=== PATIENT | male | born 1965 ===

== ENCOUNTER 2020-09-29 10:28 | Outpatient (REF) | payer BC, SELFPAY | END 2020-09-29 10:29 | disposition home or self-care (01) | LOC: HO.LAB 10:28 | PROVIDERS: PCP Internal Medicine; Visit Provider Internal Medicine | DX: Z20.828 Contact with and (suspected) exposure to other viral communicable diseases (principal) | CPT/HCPCS: C9803; U0003 ==

== ENCOUNTER 2022-11-28 07:44 | Emergency (ER) | payer BC, SELFPAY ==
--- NOTE | ~2022-11-28 | US_ITS ---
EXAMINATION: US CHEST CLINICAL INFORMATION: Palpable area of midline upper back. Question presence of a lipoma of the right back. Patient reports history of tissue removal in same region 25 years ago. COMPARISON: None TECHNIQUE: Sonographic imaging was performed in the upper and mid back region using a high-resolution linear transducer and curved 5 MHz transducer. FINDINGS: Within the area of palpable concern of the upper back, there is 5.2 x 6.7 x 4 cm mass that is nearly isoechoic compared to adipose tissue and has thin parallel septa. The grayscale and color Doppler images show no abnormal vascularity within this tissue. No calcification or cystic change within the soft tissue mass. This has a sonographic appearance that favors diagnosis of lipoma. The technologist reports observation of a second soft tissue lesion located to the right of a scar in this region. This second area of concern measures approximately 6 x 3 x 4.9 cm and has mildly heterogeneous echotexture (images 16-22 of 23). There is no abnormal soft tissue vascularity or edema in this tissue. US/US chest IMPRESSION: 5.2 x 6.7 x 4 cm soft tissue mass of the back has a sonographic appearance of a lipoma. Since the lesion is > 5 cm in size, consider whether MR imaging should be performed without and with IV contrast to confirm this diagnosis and to further evaluate the surrounding tissues. The other 6 x 3 x 4.9 cm focus identified by the mineral technologist in this same region has mildly heterogeneous echotexture and might represent a lipomatous lesion but this is uncertain.
--- NOTE | ~2022-11-28 | XR_ITS ---
EXAMINATION: XR CHEST CLINICAL INFORMATION: Right-sided chest pain COMPARISON: None TECHNIQUE: 2 views of the chest were obtained. FINDINGS: Cardiac and mediastinal silhouettes are normal in appearance. The lungs and pleural spaces are clear. Mild degenerative change seen in the lower thoracic spine. XR/XR chest 2V IMPRESSION: The lungs and pleural spaces are clear. Normal heart size.
[2022-11-28 07:46] VITALS: BP 156/73; PULSE 82; RESP 20; TEMP 36.3; O2SAT 96; BMI 35.2
--- NOTE | 2022-11-28 07:48 | ECG_ITS ---
Test Reason : chest pain Blood Pressure : / mmHG Vent. Rate : 091 BPM Atrial Rate : 091 BPM P-R Int : 140 ms QRS Dur : 102 ms QT Int : 376 ms P-R-T Axes : 052 -04 024 degrees QTc Int : 462 ms Normal sinus rhythm Inferior infarct , age undetermined Abnormal ECG No previous ECGs available Referred By: Generic ED Physician Electronically Signed By:ANNE-MARIE COBOS MD
[2022-11-28 09:46] LABS: MANUAL DIFF FLAG NO
[2022-11-28 09:48] LABS: Basophils Absolute Auto 0.1 X10*3/uL (0.0-0.2); Basophils Percent Auto 1.2 % (0-2); Eosinophils Absolute Auto 0.2 X10*3/uL (0.0-0.4); Eosinophils Percent Auto 1.8 % (0-4); Hematocrit 39.8 % (42.0-52.0); Hemoglobin 13.7 g/dl (14.0-18.0); Imm Gran Abs Auto 0.03 X10*3/uL (0.00-0.03); Imm Gran Pct Auto 0.4 % (0.0-0.4); Lymphocytes Absolute Auto 2.2 X10*3/uL (1.2-4.9); Lymphocytes Percent Auto 26.1 % (20-40); Mean Corpuscular HGB Conc 34.4 g/dl (31.0-36.0); Mean Corpuscular Volume 87.1 fL (80.0-98.0); Mean Platelet Volume 9.1 fL (9.4-12.4); Monocytes Absolute Auto 0.8 X10*3/uL (0.1-1.2); Monocytes Percent Auto 9.6 % (2-11); Neutrophils Absolute Auto 5.2 x10*3/uL (2.0-8.3); Neutrophils Percent Auto 60.9 % (45-73); Platelet Count 363 X10*3/uL (160-400); Red Blood Count 4.57 X10*6/uL (4.60-5.80); Red Cell Distribution Width 13.4 % (11.0-16.0); White Blood Count 8.6 X10*3/uL (4.8-10.8)
[2022-11-28 10:07] LABS: Alanine Aminotransferase 30 U/L (0-40); Alkaline Phosphatase 106 U/L (39-117); Anion Gap 12 (12-20); Aspartate Amino Transferase 20 U/L (5-37); Bilirubin Total 0.6 mg/dL (0.0-1.0); Blood Urea Nitrogen 27 mg/dL (9-16); Calcium 9.5 mg/dL (8.4-10.2); Carbon Dioxide 32 mmol/L (22-29); Chloride 102 mmol/L (96-108); Creatinine Clr Calc Pharmacy 93.9; Estimated Glomerular Filt Rate > 60; Glucose Random 122 mg/dL (60-115); Magnesium 1.8 mg/dL (1.6-2.6); Potassium 3.6 mmol/L (3.3-5.1); Sodium 142 mmol/L (135-145); Total Protein 7.2 g/dL (6.5-8.0)
[2022-11-28 10:14] LABS: Troponin-I High Sensitivity < 3.5 ng/L (<3.5-35.0)
--- NOTE | 2022-11-28 10:16 | ED_ITS ---
HPI - Chest Pain General Chief Complaint: General Medical Stated Complaint: Chest pain Time Seen by Provider: 11/28/22 09:10 Source: patient Mode of arrival: ambulatory Limitations: no limitations History of Present Illness HPI narrative: 57-year-old male presenting to the ER with complaints of right-sided chest pain that radiates to his right shoulder that has been constant for the past few days. He reports it is currently present at this time. He reports that it is worse when he is laying down on his back he is unsure if it is related to his lipoma that he had surgically removed a few years ago that now group back. Denies any other symptoms related to this including dizziness, headaches, neck pain/stiffness, paresthesias, jaw pain, change in vision, dyspnea on exertion, orthopnea, palpitations, paresthesias, nausea/vomiting/diarrhea, abdominal pain, flank pain, lower extremity edema or calf tenderness, recent falls or trauma, rashes or any other symptoms complaints or concerns at this time. MD complaint: chest pain Onset (ago): day(s) (For the past few days) Timing of current episode: constant Prior episodes: No Onset: other (Cannot recall when it started) Pain location: right chest Pain radiation: right shoulder and right scapula Severity: mild Quality: aching Relieving factors: nothing Exacerbating factors: other (Laying down flat) Treatment prior to arrival: none Related Data Previous Rx's Medication Instructions Recorded cyclobenzaprine 10 mg tablet 10 mg PO Q8H #14 tabs 11/28/22 naproxen 500 mg tablet 500 mg PO BID PRN pain #14 tabs 11/28/22 Allergies Allergy/AdvReac Type Severity Reaction Status Date / Time No Known Allergies Allergy Verified 11/28/22 07:47 Review of Systems Review of Systems: Constitutional : No Weight loss, No Fever, No Chills, No Night Sweats, No Fatigue, No Malaise ENT/Mouth : No Hearing loss, No Ear Pain, No Nasal Congestion, No Sinus Pain, No Hoarseness, No sore throat, No Rhinorrhea, No Swallowing Difficulty Eyes: No Eye Pain, No Swelling, No Redness, No Foreign Body, No Discharge, No Vision Changes Cardiovascular : + Chest Pain, No SOB, No Dyspnea on Exertion, No Orthopnea, No Edema, No Palpitations Respiratory : No Cough, No Sputum, No Wheezing, No Smoke Exposure, No Dyspnea Gastrointestinal : No Nausea, No Vomiting, No Diarrhea, No Constipation, No abdominal Pain, No Hematochezia, No Melena Genitourinary : no irregular bleeding, No Dysuria, No Urinary Frequency, No Hematuria, No Urinary Incontinence, No Urgency, No Flank Pain, No Urinary Flow Changes, No Hesitancy Musculoskeletal : + right shoulder joint pain, No Myalgias, No Joint Swelling Skin : + lumop to right back, No Skin Lesions, No rash Neuro : No Weakness, No Numbness, No Paresthesias, No Loss of Consciousness, No Dizziness, No Headache Psych : No Anxiety/Panic, No Depression, No SI/HI/AH/VH, No Social Issues, Heme/Lymph: No Bruising, No Bleeding,No Lymphadenopathy Endocrine : No Polyuria, No Polydipsia, No Temperature Intolerance Yes all other systems are reviewed and are negative [facility] Past Medical History Attestation statement: The following information was validated with the patient. Source: old records reviewed and nursing notes reviewed Social History Social History Advance Directives: No Advance Directives Information Provided: Yes Physical Exam Vital Signs: Vital Signs: Last Vital Signs Temp 97.3 F 11/28/22 07:46 Pulse 82 11/28/22 07:46 Resp 20 11/28/22 07:46 BP 156/73 H 11/28/22 07:46 Pulse Ox 96 11/28/22 07:46 O2 Del Method 11/28/22 07:46 BMI result Body Mass Index 35.2 Vital signs reviewed. Blood pressure 156/73. Pulse normal. Respiration normal. Oxygen normal. Temperature normal. Appearance: Alert. Oriented X3. No acute distress. Head: Normal external exam. Normocephalic. Atraumatic. Eyes: PERRLA. EOMI. Conjunctiva and sclera normal. Eyelids normal. ENT: EAC normal. TM's Normal. Pharynx normal. Uvula midline. Moist mucous mem branes. No lesions/ulcerations or masses noted on the tongue. Normal voice. No trismus noted. No drooling noted. No muffled voice noted. Neck: Normal inspection. Neck supple. FROM. No adenopathy. Thyroid Normal. No meningeal signs. CVS: Normal heart rate and rhythm. Heart sound normal. Pulses normal throughout. No murmurs/rales/gallops. Respiratory: No respiratory distress. Painless inspiration. Breath sounds normal. No wheezes/rales/rhonchi noted. Chest nontender. No accessory muscle usa ge noted or decreased air movement noted. Abdomen: Soft and nontender. Back: Full range of motion noted. Patient lipoma to right side of back. No surrounding erythema/streaking or signs of infection at this time. No purulent drainage noted. Skin: Skin warm and dry. Normal skin color. Normal skin turgor. No rashes/lesions/lacerations noted. Extremities: Extremities exhibit normal range of motion and nontender. Neuro: Oriented X 3. No motor deficit. No sensory deficit. Reflexes normal. Normal steady gait. No focal neuro deficits noted. CN's II-XII intact bilaterally? Vascular: + radial pulses. Normal cap refill. No cyanosis noted to upper extremity nails Course Course Course Narrative: 57-year-old male presenting to the ER with complaints of right-sided chest pain that radiates to his right shoulder that has been constant for the past few days. He reports it is currently present at this time. He reports that it is worse when he is laying down on his back he is unsure if it is related to his lipoma that he had surgically removed a few years ago that now grew back. This patient presents with chest pain, with symptoms suggestive of noncardiac chest pain. History without high risk features (e.g., not substernal, no exertional component, not relieved with rest). Minimal CAD risk factors (including age).Exam without evidence of volume overload. EKG without signs of active ischemia. HEART score: 0. Given the timing of pain to ER presentation, plan to send single troponin // delta troponin to evaluate for NSTEMI.Presentation not consistent with acute PE (Wells low risk / PERC negative), pneumothorax, thoracic arotic dissection, cardiac effusion or tamponade. Therefore will obtain labs, chest x-ray, EKG and an ultrasound of his back and re-evaluate. Reevaluation(s) Reevaluation #1: Labs reviewed patient mild anemia with an H&H of 13.7/39.8. Carbon dioxide 32. BUN 27. Random glucose 122. Otherwise all other labs are within normal limits. Troponin negative. Chest x-ray negative for any acute processes. Chest ultrasound revealed possible lipoma which is greater than 5 cm. Will print out the results and handed to the patient. Patient with at bedside understand and agree with the plan to follow-up with the PCP. Patient most likely muscular skeletal pain. Will DC home with muscle relaxers and instructions to follow-up with PCP regarding the lipoma and a general surgeon and to return if any new or worsening symptoms. Patient understands agrees with this plan. Time: 11:13 Medical Decision Making Lab Data MDM Lab Attestation statement: I reviewed the patient's lab results. 11/28/22 09:36 11/28/22 09:36 Labs: Lab Results 11/28/22 11/28/22 11/28/22 Range/Units 09:36 09:36 09:36 WBC 8.6 (4.8-10.8) X10*3/uL RBC 4.57 L (4.60-5.80) X10*6/uL Hgb 13.7 L (14.0-18.0) g/dl Hct 39.8 L (42.0-52.0) % MCV 87.1 (80.0-98.0) fL MCH 30.0 (27.0-33.0) pg MCHC 34.4 (31.0-36.0) g/dl RDW 13.4 (11.0-16.0) % Plt Count 363 (160-400) X10*3/uL MPV 9.1 L (9.4-12.4) fL Immature Gran % (Auto) 0.4 (0.0-0.4) % Neut % (Auto) 60.9 (45-73) % Lymph % (Auto) 26.1 (20-40) % Banner % (Auto) 9.6 (2-11) % Eos % (Auto) 1.8 (0-4) % Baso % (Auto) 1.2 (0-2) % Lymph # (Auto) 2.2 (1.2-4.9) X10*3/uL Banner # (Auto) 0.8 (0.1-1.2) X10*3/uL Eos # (Auto) 0.2 (0.0-0.4) X10*3/uL Baso # (Auto) 0.1 (0.0-0.2) X10*3/uL Abs Immat Gran (auto) 0.03 (0.00-0.03) X10*3/uL Absolute Neuts (auto) 5.2 (2.0-8.3) x10*3/uL Absolute Nucleated RBC 0.000 (0.0-0.012) X10*3/uL Nucleated RBC % (auto) 0.0 (0.0-0.2) /100WBC Sodium 142 (135-145) mmol/L Potassium 3.6 (3.3-5.1) mmol/L Chloride 102 (96-108) mmol/L Carbon Dioxide 32 H (22-29) mmol/L Anion Gap 12 (12-20) BUN 27 H (9-16) mg/dL Creatinine 1.00 (0.5-1.4) mg/dL Estim Creat Clear Calc 93.9 Estimated GFR > 60 Random Glucose 122 H (60-115) mg/dL Calcium 9.5 (8.4-10.2) mg/dL Magnesium 1.8 (1.6-2.6) mg/dL Total Bilirubin 0.6 (0.0-1.0) mg/dL AST 20 (5-37) U/L ALT 30 (0-40) U/L Alkaline Phosphatase 106 (39-117) U/L Troponin I High Sens < 3.5 (<3.5-35.0) ng/L Total Protein 7.2 (6.5-8.0) g/dL Albumin 4.0 (3.5-5.0) g/dL Independent Interpretation I performed an independent interpretation of an: EKG (Normal sinus rhythm ventricular rate of [address] abnormalities no acute ischemic change are noted. No prior EKGs to compare to at this time.), Plain X-Ray (I reviewed the x-ray results with the patient and myself and agree) and Ultrasound (Reviewed the ultrasound results with patient and myself) Radiology Impression Discussion of test interpretation with radiology: I have reviewed the radiologist's reading. Radiologist Impression: EXAMINATION: XR CHEST CLINICAL INFORMATION: Right-sided chest pain COMPARISON: None TECHNIQUE: 2 views of the chest were obtained. FINDINGS: Cardiac and mediastinal silhouettes are normal in appearance. The lungs and pleural spaces are clear. Mild degenerative change seen in the lower thoracic spine. XR/XR chest 2V IMPRESSION: The lungs and pleural spaces are clear. Normal heart size. EXAMINATION: US CHEST CLINICAL INFORMATION: Palpable area of midline upper back. Question presence of a lipoma of the right back. Patient reports history of tissue removal in same region 25 years ago.? COMPARISON: None? TECHNIQUE: Sonographic imaging was performed in the upper and mid back region using a high-resolution linear transducer and curved 5 MHz transducer. FINDINGS: Within the area of palpable concern of the upper back, there is 5.2 x 6.7 x 4 cm mass that is nearly isoechoic compared to adipose tissue and has thin parallel septa. The grayscale and color Doppler images show no abnormal vascularity within this tissue. No calcification or cystic change within the soft tissue mass. This has a sonographic appearance that favors diagnosis of lipoma. The technologist reports observation of a second soft tissue lesion located to the right of a scar in this region. This second area of concern measures approximately 6 x 3 x 4.9 cm and has mildly heterogeneous echotexture (images 16-22 of 23). There is no abnormal soft tissue vascularity or edema in this tissue. US/US chest IMPRESSION: 5.2 x 6.7 x 4 cm soft tissue mass of the back has a sonographic appearance of a lipoma. Since the lesion is > 5 cm in size, consider whether MR imaging should be performed without and with IV contrast to confirm this diagnosis and to further evaluate the surrounding tissues. The other 6 x 3 x 4.9 cm focus identified by the medical technologist generalist in this same region has mildly heterogeneous echotexture and might represent a lipomatous lesion but this is uncertain. Independent Historian Clinical information obtained from an independent historian. History obtained from or confirmed by: Spouse Prescription Management I considered prescription management with: Pain Medication Discharge Plan Discharge Clinical Impression: Lipoma of back, Atypical chest pain Patient Disposition: Home, Self-Care Instructions: Noncardiac Chest Pain (ED), Lipoma (ED), Lipoma Removal (DC) Prescriptions: New naproxen 500 mg tablet 500 mg PO BID PRN (Reason: pain) Qty: 14 0RF cyclobenzaprine 10 mg tablet 10 mg PO Q8H Qty: 14 0RF Referrals: Dash Guajardo MD [Primary Care Provider] - (Follow-up with your PCP for your lipoma) Keith Fuentes MD [Physician] - (Call to make a follow-up appointment regard ing your lipoma)
== END 2022-11-28 11:27 | disposition home or self-care (01) ==
PROVIDERS: Physician Assistant Medical; Emergency Provider Emergency Medicine Emergency Medical Services; PCP Internal Medicine
DX: R07.89 Other chest pain (principal); M25.511 Pain in right shoulder; Z79.899 Other long term (current) drug therapy
CPT/HCPCS: 36415; 71046; 76604; 80053; 83735; 84484; 85025; 93005; 99283; 99284

== ENCOUNTER 2023-07-04 18:29 | Emergency (ER) | payer OTHER, BC, SELFPAY ==
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
[2023-07-04 19:18] VITALS: BP 118/62; PULSE 74; RESP 20; TEMP 36.6; O2SAT 95; BMI 33.3
[2023-07-04] MEDS: NaPROXEN 500 MG TABLET PO (21:50)
[2023-07-04] MEDS: Cyclobenzaprine HCl 10 MG TABLET PO (21:51)
== END 2023-07-04 21:55 | disposition home or self-care (01) ==
PROVIDERS: Emergency Provider Emergency Medicine Emergency Medical Services; PCP Internal Medicine
DX: S13.4XXA Sprain of ligaments of cervical spine, initial encounter (principal); S39.012A Strain of muscle, fascia and tendon of lower back, initial encounter; M54.2 Cervicalgia; R51.9 Headache, unspecified; M51.36 Other intervertebral disc degeneration, lumbar region; V43.52XA Car driver injured in collision with other type car in traffic accident, initial encounter; Y93.9 Activity, unspecified; Y92.410 Unspecified street and highway as the place of occurrence of the external cause; Y99.9 Unspecified external cause status; Z79.899 Other long term (current) drug therapy
CPT/HCPCS: 72040; 72100; 99283; 99284

== ENCOUNTER 2023-08-11 09:38 | Outpatient (AMB) | payer BC, SELFPAY ==
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
[2023-08-11 11:37] VITALS: BP 108/60; PULSE 79; TEMP 36.5; O2SAT 97; BMI 33.9
== END 2023-08-11 12:20 | disposition home or self-care (01) ==
PROVIDERS: PCP Internal Medicine; Visit Provider Physician Assistant
DX: R07.9 Chest pain, unspecified (principal); F41.9 Anxiety disorder, unspecified
CPT/HCPCS: 93000; 99204

== ENCOUNTER 2024-05-30 10:52 | Outpatient (AMB) | payer BC, SELFPAY ==
--- NOTE | 2024-05-30 10:54 | AM.OFFWIN_ITS ---
Intake Vital Signs 05/30/24 10:55 Height 5 ft 10 in Weight 228 lb 4 oz BMI 32.7 BP 142/90 H Blood Pressure Location Rt brachial Position Sitting Pulse 66 Pulse Source Pulse Oximeter Temp 97.8 F Temp Source Oral Pulse Oximetry (%) 97 Oxygen Delivery Method Room Air Intake Visit Reasons: EP- Lost his voice Intake Note: Pt presents to the office today for c/o sore throat, and some body aches x3 days. Patient Tobacco Use Status: Former Tobacco user Allergies No Known Allergies Allergy (Verified 05/30/24 10:57) HPI HPI Comments History of Present Illness Details Patient is a 59-year-old male complaining of 3 days of a hoarse voice a sore throat and body aches. He denies any sinus pain, ear pain, fevers or sick contacts. However he states he does work at [employer] and comes in contact with a lot of people every day. [facility] Social History Patient Tobacco Use Status: Former Tobacco user Review of Systems Const All systems reviewed & are unremarkable except as noted in HPI and below Physical Exam Vital Signs: Last Vital Signs Temp 97.8 F 05/30/24 10:55 Pulse 66 05/30/24 10:55 BP 142/90 H 05/30/24 10:55 Pulse Ox 97 05/30/24 10:55 Oxygen Delivery Method Room Air 05/30/24 10:55 BMI result Body Mass Index 32.7 Const General: cooperative, healthy appearing, comfortable and no acute distress Orientation/consciousness: patient oriented x3 Limitations: no limitations HEENT Head: Yes normal to inspection Ears: hearing grossly normal bilaterally, external ears normal and TM's normal bilaterally General nose exam: Normal external nose present, Normal nares present and No nasal discharge present Face and sinus: Yes normal facial exam and Yes sinuses nontender Mouth: Normal oral and palatal mucosa present and moist mucous membranes Throat: Yes tonsils normal, Yes uvula midline and Yes posterior oropharynx abnormal (Erythema) Eyes General: appearance normal, both eyes and all related structures Neck Neck: Yes normal visual inspection Resp Effort & Inspection: normal respiratory effort, able to speak in complete sentences, Actively coughing, no respiratory distress, not tachypneic, no tripod positioning and no use of accessory muscles Auscultation: clear to auscultation bilaterally Cardio Rate: regular rate Rhythm: regular rhythm Heart sounds: normal S1 and S2 Skin General skin exam: no rashes or lesions noted Neuro General: patient oriented x3 Extrem General: Yes normal to inspection and Yes no clubbing, cyanosis or edema Results AMB Rapid Strep AMB Rapid Strep Negative Last Edit by Chelo Ashley CMA on 05/30/24 11:03 Results Reviewed Results Reviewed: Laboratory Last Values Strep Scn Rapid Clinic Negative 05/30/24 11:02 Assessment & Plan Assessment & Plan (1) Laryngitis: Code(s): J04.0 - Acute laryngitis Plan: Advised laryngitis is usually viral, could be caused by COVID so we did send a COVID swab. Rapid strep in office was negative, recommended he treat his symptoms with [id number] medication, hot tea with honey and ibuprofen. If no improvement in his symptoms over the next couple of days, he should follow up with his PCP for further workup. Plan see above Orders: Orders SARS-CoV2/FLU/RSV Today J06.9 - Acute upper respiratory infection, unspecified AMB Rapid Strep Screen Today Z13.9 - Encounter for screening, unspecified Coding Level of Care Code New Pt Level 3 (57131) Diagnoses Laryngitis J04.0
[2024-05-30 10:55] VITALS: BP 142/90; PULSE 66; TEMP 36.6; O2SAT 97; BMI 32.7
== END 2024-05-30 11:16 | disposition home or self-care (01) ==
PROVIDERS: PCP Internal Medicine; Visit Provider Physician Assistant
DX: J04.0 Acute laryngitis (principal); J02.9 Acute pharyngitis, unspecified
CPT/HCPCS: 87880; 99203

== ENCOUNTER 2024-05-30 11:02 | Outpatient (REF) | payer BC, SELFPAY ==
[2024-05-30 16:10] LABS: Influenza A PCR NEGATIVE (Negative); Influenza B PCR NEGATIVE (Negative); Resp Syncy Virus RNA Qual PCR NEGATIVE (Negative); SARS COV2 PCR INHOUSE NEGATIVE (Negative)
== END 2024-05-30 11:03 | disposition home or self-care (01) ==
LOC: HO.LAB 11:02
PROVIDERS: Visit Provider Physician Assistant
DX: J06.9 Acute upper respiratory infection, unspecified (principal)
CPT/HCPCS: 0241U

== ENCOUNTER 2024-06-30 05:23 | Emergency (ER) | payer BC, SELFPAY ==
[2024-06-30] VITALS (7 sets, daily range): BP systolic 111–138; BP diastolic 56–81; PULSE 60–84; RESP 13–18; TEMP 36.4–36.7; O2SAT 97–98; BMI 35.3
--- NOTE | 2024-06-30 05:36 | ECG_ITS ---
Test Reason : DIZZINESS Blood Pressure : / mmHG Vent. Rate : 058 BPM Atrial Rate : 058 BPM P-R Int : 164 ms QRS Dur : 114 ms QT Int : 436 ms P-R-T Axes : 020 014 019 degrees QTc Int : 428 ms Sinus bradycardia Otherwise normal ECG When compared with ECG of 28-NOV-2022 07:50, Vent. rate has decreased BY 33 BPM Referred By: Suellen Gallardo Electronically Signed By:YENNY ALONZO
--- NOTE | 2024-06-30 05:48 | ED.DIZZY ---
HPI - Dizziness General Chief Complaint: Dizziness Stated Complaint: Dizzy Time Seen by Provider: 06/30/24 05:47 Source: patient Mode of arrival: ambulatory Limitations: no limitations History of Present Illness ED Provider: JUDSON FRAZIER Narrative: 59 yo male with PMH of HTN, pre-diabetes who presents with c/o dizziness on and off fine during the day but when he woke up both mornings he felt dizzy and lightheaded. No CP/SOB, no recent URI, no headaches/tinnitus, head trauma. He states he has been feeling great. He has no med changes. This has never happened before. No recent travel, no GIB symptoms. MD elicited complaint: dizziness Onset (ago): day(s) (2) Timing: sudden onset and intermittent Severity: moderate Description: room spinning and lightheadedness Context: change in body position History of similar symptoms: Yes Exacerbating factors: change in body position Relieving factors: remaining still Associated symptoms: denies other symptoms Related Data Home Medications ?Medication ?Instructions ?Recorded ?Confirmed amlodipine 5 mg tablet 5 mg PO DAILY 08/11/23 celecoxib 200 mg capsule mg PO BID 08/11/23 eplerenone 25 mg tablet 25 mg PO DAILY 08/11/23 lisinopril 40 mg tablet 40 mg PO DAILY 08/11/23 tamsulosin 0.4 mg capsule 0.4 mg PO DAILY 08/11/23 Previous Rx's ?Medication ?Instructions ?Recorded cyclobenzaprine 10 mg tablet 10 mg PO Q8H #14 tabs 11/28/22 naproxen 500 mg tablet 500 mg PO BID PRN pain #14 tabs 11/28/22 cyclobenzaprine 10 mg tablet 10 mg PO TID PRN muscle spasm #20 07/04/23 tabs naproxen 500 mg tablet 500 mg PO BID PRN pain #14 tabs 07/04/23 hydroxyzine HCl 25 mg tablet 25 mg PO TID PRN anxiety #10 tabs 08/11/23 Allergies Allergy/AdvReac Type Severity Reaction Status Date / Time No Known Allergies Allergy Verified 06/30/24 05:40 Review of Systems Review of Systems: Constitutional : No Fever, No Chills, No Fatigue ENT/Mouth : No sore throat, No Rhinorrhea Eyes: No Eye Pain, No Swelling, No Redness Cardiovascular : No Chest Pain, No SOB, No Dyspnea on Exertion Respiratory : No Cough, No Sputum Gastrointestinal : No Nausea, No Vomiting, No Diarrhea, No abdominal Pain Genitourinary : No Dysuria, No Urinary Frequency, No Hematuria, Musculoskeletal : No joint pain, No Myalgias, No Joint Swelling Skin : No Skin Lesions, No rash Neuro : No Weakness, No Numbness, pos Dizziness, no Headache Psych : No Anxiety/Panic, No Depression Heme/Lymph: No Bruising, No Bleeding,No Lymphadenopathy Endocrine : No Polyuria, No Polydipsia All other systems reviewed and are negative [facility] Past Medical History Attestation statement: The following information was validated with the patient. Source: old records reviewed Medical History HTN (hypertension) Anxiety Social History Social History Patient Tobacco Use Status: Former Tobacco user Smoked in Last 30 Days: No Use of substances other than those prescribed or required for medical reasons: No Advance Directives: No Advance Directives Information Provided: Yes Physical Exam Vital Signs: Vital Signs: Last Vital Signs Temp 97.6 F 06/30/24 05:43 Pulse 78 06/30/24 05:57 Resp 18 06/30/24 05:43 BP 129/70 06/30/24 05:57 Pulse Ox 97 06/30/24 05:43 O2 Del Method Room Air 06/30/24 05:43 BMI result Body Mass Index 35.3 Appearance: Alert. Oriented X3. No acute distress. Eyes: Pupils equal, round and reactive to light. ENT: Pharynx normal. Normal TMs Neck: Normal inspection. Neck supple. CVS: Normal heart rate and rhythm. Pulses normal. Respiratory: No respiratory distress. Breath sounds normal. Abdomen: Soft and nontender. Skin: Skin warm and dry. Normal skin color. Normal skin turgor. Extremities: No lower extremity edema. No calf ttp Neuro: Oriented X 3. No motor deficit. No sensory deficit. normal gait, no ataxia, no drift NIH Stroke Scale Internal: Initial- Upon Arrival Level of Consciousness: Alert Level of Consciousness Questions: Answers both questions correctly Level of Consciousness Commands: Performs both tasks correctly Best Gaze: Normal Visual: No visual loss Facial Palsy: Normal Motor Arm (Right): No drift Motor Arm (Left): No drift Motor Leg (Right): No drift Motor Leg (Left): No drift Limb Ataxia: Absent Sensory: Normal Best Language: No aphasia Dysarthia: Normal Extinction and Inattention: No abnormality Score: 0 Course Course Course Narrative: negative orthostatic VS Medications Administered Discontinued Medications Generic Name Dose Route Start Last Admin Trade Name Arabella PRN Reason Stop Dose Admin Lactated Ringer's 1,000 mls @ 999 mls/hr 06/30/24 05:36 06/30/24 06:15 Lr IV 06/30/24 06:36 999 mls/hr .Q1H1M ONE Administration Medical Decision Making Medical Decision Making [facility] Narrative: 59 yo male with PMH of HTN, pre-diabetes here with c/o positional dizziness worse x 2 days in AM - at this time not toxic, normal gait, denies CP/SOB - no GI bleed symptoms. He is not toxic appearing will obtain basic labs, EKG, ortho VS, hydrate. Given 2 days and in AM with standing without other symptoms or focal deficits I do not suspect stroke. He has no chest pain to suggest ACS. Differential Diagnosis Differential Diagnoses: The differential diagnosis associated with the presentation includes vertigo, orthostatic hypotension, dehydration, anemia Admission/Observation Consideration of admission/observation: Escalation of care including admission/observation considered labs stable, VS stable, neg ortho vs feels better stable for DC Lab Data [facility] Lab Attestation statement: I reviewed the patient's lab results. 06/30/24 06:08 06/30/24 06:08 Labs: Lab Results 06/30/24 Range/Units 06:08 WBC 6.9 (4.8-10.8) X10*3/uL RBC 4.47 L (4.60-5.80) X10*6/uL Hgb 13.4 L (14.0-18.0) g/dl Hct 39.0 L (42.0-52.0) % MCV 87.2 (80.0-98.0) fL MCH 30.0 (27.0-33.0) pg MCHC 34.4 (31.0-36.0) g/dl RDW 13.3 (11.0-16.0) % Plt Count 311 (160-400) X10*3/uL MPV 9.0 L (9.4-12.4) fL Immature Gran % (Auto) 0.3 (0.0-0.4) % Neut % (Auto) 57.3 (45-73) % Lymph % (Auto) 28.8 (20-40) % Hand % (Auto) 9.2 (2-11) % Eos % (Auto) 3.2 (0-4) % Baso % (Auto) 1.2 (0-2) % Lymph # (Auto) 2.0 (1.2-4.9) X10*3/uL Hand # (Auto) 0.6 (0.1-1.2) X10*3/uL Eos # (Auto) 0.2 (0.0-0.4) X10*3/uL Baso # (Auto) 0.1 (0.0-0.2) X10*3/uL Abs Immat Gran (auto) 0.02 (0.00-0.03) X10*3/uL Absolute Neuts (auto) 3.9 (2.0-8.3) x10*3/uL Absolute Nucleated RBC 0.000 (0.0-0.012) X10*3/uL Nucleated RBC % (auto) 0.0 (0.0-0.2) /100WBC Hold Purple Top SEE NOTE Hold Blue Top SEE NOTE Sodium 141 (135-145) mmol/L Potassium 3.8 (3.3-5.1) mmol/L Chloride 107 (96-108) mmol/L Carbon Dioxide 25 (22-29) mmol/L Anion Gap 13 (12-20) BUN 27 H (9-16) mg/dL Creatinine 0.89 (0.5-1.4) mg/dL Estim Creat Clear Calc 103.1 Estimated GFR > 60 Random Glucose 158 H (60-115) mg/dL Calcium 9.3 (8.4-10.2) mg/dL Magnesium 2.0 (1.6-2.6) mg/dL Total Bilirubin 0.6 (0.0-1.0) mg/dL Direct Bilirubin 0.2 (0.0-0.5) mg/dL AST 16 (5-37) U/L ALT 25 (0-40) U/L Alkaline Phosphatase 95 (39-117) U/L Troponin I High Sens < 2.7 (<3.5-35.0) ng/L Total Protein 7.1 (6.5-8.0) g/dL Albumin 3.9 (3.5-5.0) g/dL Independent Interpretation I performed an independent interpretation of an: EKG Interpretation: Rate: 58 Rhythm: sinus bradycardia [place]: normal Normal P waves. Normal [place]. Normal QRS complex. ST T wave : normal no LIBAN qTC: 428 prior studies: no acute ischemia The study has been interpreted contemporaneously by me. . Independent Historian Clinical information obtained from an independent historian. History obtained from or confirmed by: Spouse External Record Review External record reviewed: Office record Discharge Plan Discharge Clinical Impression: Dizziness Patient Disposition: Home, Self-Care Instructions: Dizziness (ED) Additional Instructions: follow up with your doctor rest and stay hydrated wait on the edge of the bed for 1 min prior to getting up return for any worsening symptoms or concerns Prescriptions: No Action naproxen 500 mg tablet 500 mg PO BID PRN (Reason: pain) Qty: 14 0RF cyclobenzaprine 10 mg tablet 10 mg PO Q8H Qty: 14 0RF cyclobenzaprine 10 mg tablet 10 mg PO TID PRN (Reason: muscle spasm) Qty: 20 0RF naproxen 500 mg tablet 500 mg PO BID PRN (Reason: pain) Qty: 14 0RF lisinopril 40 mg tablet 40 mg PO DAILY tamsulosin 0.4 mg capsule 0.4 mg PO DAILY amlodipine 5 mg tablet 5 mg PO DAILY celecoxib 200 mg capsule PO BID eplerenone 25 mg tablet 25 mg PO DAILY hydroxyzine HCl 25 mg tablet 25 mg PO TID PRN (Reason: anxiety) Qty: 10 0RF Stand Alone Forms: Work/School Release Print Language: Japanese
[2024-06-30] MEDS: Lactated Ringers 1,000 ML 999 ML IV (06:15)
[2024-06-30 06:16] LABS: Basophils Absolute Auto 0.1 X10*3/uL (0.0-0.2); Basophils Percent Auto 1.2 % (0-2); Eosinophils Absolute Auto 0.2 X10*3/uL (0.0-0.4); Eosinophils Percent Auto 3.2 % (0-4); Hemoglobin 13.4 g/dl (14.0-18.0); Imm Gran Abs Auto 0.02 X10*3/uL (0.00-0.03); Imm Gran Pct Auto 0.3 % (0.0-0.4); Lymphocytes Percent Auto 28.8 % (20-40); MANUAL DIFF FLAG NO; Mean Corpuscular HGB Conc 34.4 g/dl (31.0-36.0); Mean Corpuscular Volume 87.2 fL (80.0-98.0); Monocytes Absolute Auto 0.6 X10*3/uL (0.1-1.2); Monocytes Percent Auto 9.2 % (2-11); Neutrophils Absolute Auto 3.9 x10*3/uL (2.0-8.3); Neutrophils Percent Auto 57.3 % (45-73); Platelet Count 311 X10*3/uL (160-400); Red Blood Count 4.47 X10*6/uL (4.60-5.80); Red Cell Distribution Width 13.3 % (11.0-16.0); White Blood Count 6.9 X10*3/uL (4.8-10.8)
[2024-06-30 06:29] LABS: Alanine Aminotransferase 25 U/L (0-40); Albumin Level 3.9 g/dL (3.5-5.0); Alkaline Phosphatase 95 U/L (39-117); Anion Gap 13 (12-20); Aspartate Amino Transferase 16 U/L (5-37); Bilirubin Direct 0.2 mg/dL (0.0-0.5); Bilirubin Total 0.6 mg/dL (0.0-1.0); Blood Urea Nitrogen 27 mg/dL (9-16); Calcium 9.3 mg/dL (8.4-10.2); Carbon Dioxide 25 mmol/L (22-29); Chloride 107 mmol/L (96-108); Creatinine Clr Calc Pharmacy 103.1; Estimated Glomerular Filt Rate > 60; Glucose Random 158 mg/dL (60-115); Potassium 3.8 mmol/L (3.3-5.1); Sodium 141 mmol/L (135-145); Total Protein 7.1 g/dL (6.5-8.0)
[2024-06-30 06:52] LABS: Troponin-I High Sensitivity < 2.7 ng/L (<3.5-35.0)
== END 2024-06-30 07:35 | disposition home or self-care (01) ==
PROVIDERS: Emergency Provider Emergency Medicine; PCP Internal Medicine
DX: R42 Dizziness and giddiness (principal); I10 Essential (primary) hypertension; Z79.899 Other long term (current) drug therapy
CPT/HCPCS: 36415; 80048; 80076; 83735; 84484; 85025; 93005; 99283; 99285; J7120

== ENCOUNTER → 2024-10-06 18:51 | Outpatient (BNV) | payer BC, SELFPAY | PROVIDERS: Emergency Provider Emergency Medicine; Visit Provider Internal Medicine | DX: R07.9 Chest pain, unspecified (principal) | CPT/HCPCS: 93010 ==

== ENCOUNTER → 2024-10-06 19:09 | Outpatient (BNV) | payer BC, SELFPAY | PROVIDERS: Visit Provider Radiology Diagnostic Radiology | DX: R07.9 Chest pain, unspecified (principal) | CPT/HCPCS: 71045 ==

== ENCOUNTER 2024-12-21 05:54 | Inpatient (IN) | payer BC, SELFPAY ==
[2024-12-21] VITALS (12 sets, daily range): BP systolic 140–191; BP diastolic 71–98; PULSE 61–85; RESP 18–20; TEMP 36.5–36.9; O2SAT 95–98; BMI 36.0
--- NOTE | 2024-12-21 | ECG_ITS ---
Test Reason : chest pain Blood Pressure : */* mmHG Vent. Rate : 86 BPM Atrial Rate : 86 BPM P-R Int : 168 ms QRS Dur : 98 ms QT Int : 364 ms P-R-T Axes : 57 0 31 degrees QTcB Int : 435 ms Normal sinus rhythm Normal ECG When compared with ECG of 06-Oct-2024 18:55, No significant change was found Referred By: Generic ED Physician Electronically Signed By: ANNE-MARIE COBOS MD
--- NOTE | ~2024-12-21 | XR_ITS ---
CLINICAL HISTORY: chest pain 2 view chest x-ray Comparison: CR - XR CHEST 1V - 10/06/24 19:50 EST Findings: No consolidation or effusion. Normal size heart. No acute fracture. IMPRESSION: 1. No acute findings. This document has been electronically signed by: Sana Barrett MD on 12/21/2024 07:54:03
--- NOTE | 2024-12-21 06:12 | MHC.EDTECH ---
pt arrived to the ED w/ reports of chest pain. This tech brought pt into the EDTech Triage area and performed an EKG and handed it to the provider @0600, then obtained lab work.
[2024-12-21 06:14] LABS: Hematocrit 40.3 % (42.0-52.0); Hemoglobin 14.3 g/dl (14.0-18.0); Mean Corpuscular HGB Conc 35.5 g/dl (31.0-36.0); Mean Corpuscular Hemoglobin 29.6 pg (27.0-33.0); Mean Corpuscular Volume 83.4 fL (80.0-98.0); Mean Platelet Volume 9.2 fL (9.4-12.4); Platelet Count 301 X10*3/uL (160-400); Red Blood Count 4.83 X10*6/uL (4.60-5.80); Red Cell Distribution Width 13.6 % (11.0-16.0); White Blood Count 8.1 X10*3/uL (4.8-10.8)
--- NOTE | 2024-12-21 06:37 | ED_ITS ---
HPI - Chest Pain General Chief Complaint: Chest Pain Stated Complaint: chest pain Time Seen by Provider: 12/21/24 06:37 Source: patient and family (patient's ) Mode of arrival: ambulatory Limitations: no limitations History of Present Illness ED Provider: Yuli Milton PA-C HPI narrative: Patient is a 59 year old assigned male at with a history of HTN for which he is on lisinopril and amlodipine presenting to the emergency department today with chest pain and bilateral arm pain. Patient states that he woke up this morning to go to the bathroom and started having chest pain that radiated to both of his arms. Patient states that he has had this happen before and has a conveyor loader appointment in January of 2025. Patient states that he forgot to take his blood pressure medication last night and he did drink 6-8 beers yesterday. Patient denies any dizziness, lightheadedness, abdominal pain, nausea, vomiting, fever, chills, blurry vision, double vision, loss of vision, difficulty breathing, shortness of breath, back pain, night sweats, pain with urination, increased urinary frequency, increased urinary urgency, blood in his urine or stool, syncope or a near syncopal episode, recent trauma or falls, bowel incontinence, bladder incontinence, or any other complaints at this time. Related Data Home Medications ?Medication ?Instructions ?Recorded ?Confirmed amlodipine 5 mg tablet 5 mg PO DAILY 08/11/23 eplerenone 25 mg tablet 25 mg PO DAILY 08/11/23 lisinopril 40 mg tablet 40 mg PO DAILY 08/11/23 tamsulosin 0.4 mg capsule 0.4 mg PO DAILY 08/11/23 sildenafil 100 mg tablet 100 mg PO DAILY PRN Erectile 12/21/24 Dysfunction Allergies Allergy/AdvReac Type Severity Reaction Status Date / Time No Known Allergies Allergy Verified 12/21/24 06:08 Review of Systems 2 Constitutional: Constitutional: Reports no additional constitutional complaints, Denies chills, Denies fever(s) and Denies night sweats Eyes: Eyes: Reports no additional eye complaints, Denies blurry vision, Denies change in vision, Denies diplopia, Denies eye discharge, Denies loss of vision and Denies eye pain ENT: Denies dizziness Cardiovascular: Cardiovascular: Reports no additional cardiovascular complaints, Reports chest pain, Denies lightheadedness, Denies Loss of Consciousness and Denies dyspnea Respiratory: Respiratory: Reports no additional respiratory complaints and Denies dyspnea Gastrointestinal: Gastrointestinal: Reports no additional gastrointestinal complaints, Denies abdominal pain, Denies melena, Denies hematochezia, Denies change in bowel habits and Denies change in stool character Genitourinary: Genitourinary: Reports no additional male genitourinary complaints, Denies hematuria, Denies oliguria, Denies difficulty urinating, Denies dysuria, Denies urinary frequency, Denies urinary hesitancy, Denies urinary incontinence and Denies urinary urgency Musculoskeletal: Musculoskeletal: Reports no additional musculoskeletal complaints, Denies numbness and Denies tingling Neurologic: Denies dizziness, Denies loss of vision, Denies numbness and Denies tingling Psychiatric: Psychiatric: Reports no additional psychiatric complaints Endocrine: Endocrine: Reports no additional endocrine complaints Hematologic/Lymphatic: Hematologic/Lymphatic: Reports no additional hematologic/lymphatic complaints Allergic/Immunologic: Allergic/Immunologic: Reports no additional allergic/immunologic complaints PMFSH Past Medical History Attestation statement: The following information was validated with the patient. (all information validated with the patient's ) Source: old records reviewed, obtained from family (patient's provided additional history and confirmed the history provided by the patient.) and nursing notes reviewed Medical History HTN (hypertension) Anxiety Social History Social History Alcohol intake: current Alcohol intake frequency: a few times a week Alcohol type: beer Patient Tobacco Use Status: Former Tobacco user Smoked in Last 30 Days: No Use of substances other than those prescribed or required for medical reasons: No Advance Directives: No Advance Directives Information Provided: Yes Physical Exam 2 Vital Signs: Vital Signs: Last Vital Signs Temp 97.8 F 12/21/24 06:05 Pulse 64 12/21/24 10:31 Resp 18 12/21/24 10:31 BP 166/87 H 12/21/24 10:31 Pulse Ox 97 12/21/24 09:16 O2 Del Method Room Air 12/21/24 09:16 BMI result Body Mass Index 36.0 Const: General: cooperative, no acute distress, alert and awake Nutritional Appearance: well nourished Orientation/consciousness: patient oriented x3 Limitations: no limitations HEENT: Head: Yes normal to inspection and Yes atraumatic Ears: hearing grossly normal bilaterally and external ears normal General nose exam: Normal external nose present, no nasal discharge noted and no epistaxis Face and sinus: Yes normal facial exam, No abrasion and No laceration Mouth: Normal oral and palatal mucosa present, no drooling and no muffled voice Eyes: General: appearance normal, both eyes and all related structures P eriorbital: periorbital findings normal Eyelids: Yes eyelids normal C onjunctivae: conjunctivae normal Pupils: Equal, round and reactive pupils present EOM: EOMs intact bilaterally Neck: Neck: Yes normal visual inspection, Yes full ROM and Yes no lymphadenopathy Chest: Chest palpation & inspection: normal inspection of the chest Resp: Effort & Inspection: normal respiratory effort and able to speak in complete sentences GI: Inspection: Yes normal to inspection Neuro: General: patient oriented x3, moves all extremities and CN's II-XI intact bilaterally Cranial nerves: Yes Equal, round and reactive pupils present Cognition (Neuro): normal cognition Extrem: General: Yes normal to inspection, Yes full ROM and Yes capillary refill normal Psych: Appearance: grossly normal Mental Status: mental status grossly normal Affect: normal affect Attitude: cooperative Thought process: N ormal thought process present Thought content: Normal thought content present Insight: Good insight present (Psych) Medications Administered Generic Name Dose Route Start Last Admin Trade Name Freq PRN Reason Stop Dose Admin Enoxaparin Sodium 40 mg 12/21/24 10:15 12/21/24 10:31 Enoxaparin Sodium 40 Mg/0.4 Ml Syringe SUBCUT 40 mg Q24H CANDELARIO Administration Discontinued Medications Generic Name Dose Route Start Last Admin Trade Name Frelisandra PRN Reason Stop Dose Admin Al Hydroxide/Mg Hydroxide 15 ml 12/21/24 06:46 12/21/24 07:19 Magnesium Hydrox/Alum Hydrox 30 Ml Oral.Susp PO 12/21/24 06:47 15 ml ONCE ONE Administration Amlodipine Besylate 5 mg 12/21/24 06:46 12/21/24 07:13 Amlodipine Besylate 5 Mg Tablet PO 12/21/24 06:47 5 mg ONCE ONE Administration Protocol Amlodipine Besylate 5 mg 12/21/24 10:07 12/21/24 10:14 Amlodipine Besylate 5 Mg Tablet PO 12/21/24 10:08 5 mg ONCE ONE Administration Protocol Aspirin 325 mg 12/21/24 10:10 12/21/24 10:14 Aspirin 325 Mg Tablet PO 12/21/24 10:11 325 mg ONCE ONE Administration Ketorolac Tromethamine 15 mg 12/21/24 06:46 12/21/24 07:14 Ketorolac Tromethamine 15 Mg/Ml Vial IVPUSH 12/21/24 06:47 15 mg ONCE ONE Administration Lisinopril 40 mg 12/21/24 06:46 12/21/24 07:13 Lisinopril 40 Mg Tablet PO 12/21/24 06:47 40 mg ONCE ONE Administration Protocol Pantoprazole Sodium 40 mg 12/21/24 06:46 12/21/24 07:18 Pantoprazole Sodium 40 Mg/10 Ml Vial IVPUSH 12/21/24 06:47 40 mg ONCE ONE Administration Medical Decision Making Medical Decision Making MDM Narrative: Patient is a 59 year old assigned male at with a history of HTN for which he is on lisinopril and amlodipine presenting to the emergency department today with chest pain and bilateral arm pain. Patient's physical exam was as noted in the physical exam portion of this note. Patient's blood work showed an initial trop of <2.7 with a 2 hour repeat of 13.3. Patient's EKG was unremarkable. Patient's chest x-ray showed no acute process. I spoke to Dr. Davis, the conveyor loader driver's education instructor. He came and evaluated the patient then recommended medical admission for a stress test tomorrow (12/22/2024). I explained my physical exam findings as well as all test results to the patient and the patient's . I answered all questions asked by the patient and the patient's . Patient and the patient's verbalized agreement and understanding with this treatment plan and admission. Differential Diagnosis Differential Diagnoses: The differential diagnosis associated with the presentation includes Chest pain NSTEMI STEMI ACS Admission/Observation Consideration of admission/observation: Escalation of care including admission/observation considered Patient admitted as noted in the MDM Rationale portion of this note. Consult Healthcare Provider Management of the patient was discussed with: Hospitalist (agreed to admission as noted in the MDM Rationale portion of this note.) and Bank Worker (spoke to the conveyor loader as noted in the MDM Rationale portion of this note. ) Lab Data [facility] Lab Attestation statement: I reviewed the patient's lab results. My interpretation of these results are in the MDM Rationale portion of this note. 12/21/24 06:00 12/21/24 06:00 Labs: Lab Results 12/21/24 12/21/24 12/21/24 Range/Units 06:00 06:25 08:03 WBC 8.1 (4.8-10.8) X10*3/uL RBC 4.83 (4.60-5.80) X10*6/uL Hgb 14.3 (14.0-18.0) g/dl Hct 40.3 L (42.0-52.0) % MCV 83.4 (80.0-98.0) fL MCH 29.6 (27.0-33.0) pg MCHC 35.5 (31.0-36.0) g/dl RDW 13.6 (11.0-16.0) % Plt Count 301 (160-400) X10*3/uL MPV 9.2 L (9.4-12.4) fL Absolute Nucleated RBC 0.000 (0.0-0.012) X10*3/uL Nucleated RBC % (auto) 0.0 (0.0-0.2) /100WBC PT 12.7 H (10.9-12.4) SEC INR 1.1 (0.9-1.1) Sodium 142 (135-145) mmol/L Potassium 3.6 (3.3-5.1) mmol/L Chloride 107 (96-108) mmol/L Carbon Dioxide 27 (22-29) mmol/L Anion Gap 12 (12-20) BUN 15 (9-16) mg/dL Creatinine 0.85 (0.5-1.4) mg/dL Estim Creat Clear Calc 109.0 Estimated GFR > 60 Random Glucose 134 H (60-115) mg/dL Calcium 9.2 (8.4-10.2) mg/dL Magnesium 2.0 (1.6-2.6) mg/dL Total Bilirubin 0.7 (0.0-1.0) mg/dL AST 24 (5-37) U/L ALT 30 (0-40) U/L Alkaline Phosphatase 118 H (39-117) U/L Troponin I High Sens < 2.7 13.3 D (<3.5-35.0) ng/L Total Protein 7.7 (6.5-8.0) g/dL Albumin 4.1 (3.5-5.0) g/dL Triglycerides 203 H (<150) mg/dL Cholesterol 169 (<200) mg/dL LDL Cholesterol, Calc 82 (<100) mg/dL HDL Cholesterol 47 (>40) mg/dL Lipase 20 (8-78) U/L Influenza Type A (PCR) NEGATIVE (Negative) Influenza Type B (PCR) NEGATIVE (Negative) RSV RNA Qual (PCR) NEGATIVE (Negative) SARS-CoV-2 RNA (RT-PCR) NEGATIVE (Negative) Independent Interpretation I performed an independent interpretation of an: EKG and Plain X-Ray Interpretation: My interpretation is in agreement with the radiologist's impression of this imaging study. L CLINICAL HISTORY: chest pain 2 view chest x-ray Comparison: CR - XR CHEST 1V - 10/06/24 19:50 EST Findings: No consolidation or effusion. Normal size heart. No acute fracture. IMPRESSION: 1. No acute findings. This document has been electronically signed by: Sana Barrett MD on 12/21/2024 07:54:03 Dictated By: Sana Barrett MD Signed By: Electronically signed by Sana Barrett MD 12/21/24 0754 I independently interpreted this EKG and am in agreement with the below findings: Vent. Rate: 86 BPM Atrial Rate: 86 BPM P-R Int: 168 ms QRS Dur: 98 ms QT Int: 364 ms P-R-T Axes: 57 0 31 degrees QTcB Int: 435 ms Normal sinus rhythm Normal ECG When compared with ECG of 06-Oct-2024 18:55, No significant change was found DD/ 0557 I independently interpreted this EKG and am in agreement with the below findings: Vent. Rate: 75 BPM Atrial Rate: 75 BPM P-R Int: 164 ms QRS Dur: 98 ms QT Int: 394 ms P-R-T Axes: 62 -2 30 degrees QTcB Int: 439 ms Normal sinus rhythm Normal ECG When compared with ECG of 21-Dec-2024 05:57, No significant change was found DD/ [id number] Radiology Impression Discussion of test interpretation with radiology: I have reviewed the radiologist's reading. Independent Historian Clinical information obtained from an independent historian. History obtained from or confirmed by: Spouse (patient's provided additional history and confirmed the history provided by the patient. ) Chronic Conditions Patient?s care impacted by: Hypertension Critical Care Time Critical Care Time Critical Care Time: Yes Total Critical Care Time: 48 Attestation: I spent 48 minutes of Critical Care Time with this patient. This does not include time spent on separately reported billable procedures. Discharge Plan Discharge Clinical Impression: Chest pain Patient Disposition: Admitted As Inpatient
[2024-12-21 06:39] LABS: INTERNATIONAL NORM RATIO 1.1 (0.9-1.1); Prothrombin Time 12.7 SEC (10.9-12.4)
[2024-12-21 06:40] LABS: Alanine Aminotransferase 30 U/L (0-40); Albumin Level 4.1 g/dL (3.5-5.0); Alkaline Phosphatase 118 U/L (39-117); Anion Gap 12 (12-20); Aspartate Amino Transferase 24 U/L (5-37); Bilirubin Total 0.7 mg/dL (0.0-1.0); Blood Urea Nitrogen 15 mg/dL (9-16); Calcium 9.2 mg/dL (8.4-10.2); Carbon Dioxide 27 mmol/L (22-29); Chloride 107 mmol/L (96-108); Estimated Glomerular Filt Rate > 60; Glucose Random 134 mg/dL (60-115); Potassium 3.6 mmol/L (3.3-5.1); Sodium 142 mmol/L (135-145); Total Protein 7.7 g/dL (6.5-8.0); Troponin-I High Sensitivity < 2.7 ng/L (<3.5-35.0)
[2024-12-21] MEDS: lisinopriL 40 MG TABLET PO (07:13)
[2024-12-21] MEDS: amLODIPine Besylate 5 MG TABLET PO ×2 (07:13→10:14)
[2024-12-21] MEDS: Ketorolac Tromethamine 15 MG/ML VIAL IVPUSH (07:14)
[2024-12-21] MEDS: Pantoprazole Sodium 40 MG/10 ML VIAL IVPUSH (07:18)
[2024-12-21] MEDS: Magnesium Hydrox/Alum Hydrox 30 ML ORAL.SUSP 15 ML PO (07:19)
[2024-12-21 09:04] LABS: Troponin-I High Sensitivity 13.3 ng/L (<3.5-35.0)
[2024-12-21 09:07] LABS: Lipase 20 U/L (8-78)
--- NOTE | 2024-12-21 09:09 | PC.NURSE ---
Denies chest pain or sob . Patient reports feeling much better, stating was able to fall asleep and take a nap. PA aware
[2024-12-21 09:26] LABS: Influenza A PCR NEGATIVE (Negative); Influenza B PCR NEGATIVE (Negative); Resp Syncy Virus RNA Qual PCR NEGATIVE (Negative); SARS COV2 PCR INHOUSE NEGATIVE (Negative)
--- NOTE | 2024-12-21 09:35 | ECG_ITS ---
Test Reason : CP Blood Pressure : */* mmHG Vent. Rate : 75 BPM Atrial Rate : 75 BPM P-R Int : 164 ms QRS Dur : 98 ms QT Int : 394 ms P-R-T Axes : 62 -2 30 degrees QTcB Int : 439 ms Normal sinus rhythm Normal ECG When compared with ECG of 21-Dec-2024 05:57, No significant change was found Referred By: Yuli Milton Electronically Signed By: ANNE-MARIE COBOS MD
--- NOTE | 2024-12-21 09:58 | P.CONCA_ITS ---
History of Present Illness History of Present Illness Date of Service: 12/21/24 Chief complaint: chest pain Narrative: [age] year gentleman presenting with chest pain. He has background history of hypertension and prediabetes. He has been experiencing chest pains was due to see a railcar carpenter at [facility]. He is saying when he exercises he gets chest pains. Yesterday he woke up from sleep with burning chest discomfort which was different from usual chest pains. This radiated to his arms. He came to the emergency department with these symptoms. His blood pressure was significantly elevated. With blood pressure control his symptoms improve. ECG did not show any dynamic changes. His troponins are negative. He is a nonsmoker otherwise. Does not use any drugs. Drinks at times on the weekends. Labs, EKG and imaging reviewed. [facility] Past Medical History Medical History HTN (hypertension) Anxiety Social History Social History Alcohol intake: current Alcohol intake frequency: a few times a week Alcohol type: beer Patient Tobacco Use Status: Former Tobacco user Smoked in Last 30 Days: No Use of substances other than those prescribed or required for medical reasons: No Advance Directives: No Advance Directives Information Provided: Yes Meds Allergies Allergy/AdvReac Type Severity Reaction Status Date / Time No Known Allergies Allergy Verified 12/21/24 06:08 Home Medications ?Medication ?Instructions ?Recorded ?Confirmed ?Last Taken ?Type amlodipine 5 mg tablet 5 mg PO DAILY 08/11/23 Unknown History eplerenone 25 mg tablet 25 mg PO DAILY 08/11/23 Unknown History lisinopril 40 mg tablet 40 mg PO DAILY 08/11/23 Unknown History tamsulosin 0.4 mg capsule 0.4 mg PO DAILY 08/11/23 Unknown History sildenafil 100 mg tablet 100 mg PO DAILY PRN Erectile 12/21/24 Unknown History Dysfunction Physical Exam 2 Vital Signs: Vital Signs: Last Vital Signs Temp 97.8 F 12/21/24 06:05 Pulse 61 12/21/24 09:16 Resp 18 12/21/24 09:16 BP 151/71 H 12/21/24 09:16 Pulse Ox 97 12/21/24 09:16 O2 Del Method Room Air 12/21/24 09:16 BMI result Body Mass Index 36.0 GENERAL APPEARANCE: in no acute distress, pleasant. NECK: no carotid bruit, no jugular venous distention. SKIN: no suspicious lesions, warm and dry. HEART: no murmurs, regular rate and rhythm. LUNGS: clear to auscultation bilaterally. ABDOMEN: soft, nontender. EXTREMITIES: no edema. PERIPHERAL PULSES: equal. NEUROLOGIC: No gross deficits, AAO X 3 Objective Labs and Meds 12/21/24 06:00 12/21/24 06:00 Lab results: Laboratory Results - last 24 hr 12/21/24 12/21/24 12/21/24 06:00 06:25 08:03 WBC 8.1 RBC 4.83 Hgb 14.3 Hct 40.3 L MCV 83.4 MCH 29.6 MCHC 35.5 RDW 13.6 Plt Count 301 MPV 9.2 L Absolute Nucleated RBC 0.000 Nucleated RBC % (auto) 0.0 PT 12.7 H INR 1.1 Sodium 142 Potassium 3.6 Chloride 107 Carbon Dioxide 27 Anion Gap 12 BUN 15 Creatinine 0.85 Estim Creat Clear Calc 109.0 Estimated GFR > 60 Random Glucose 134 H Calcium 9.2 Magnesium 2.0 Total Bilirubin 0.7 AST 24 ALT 30 Alkaline Phosphatase 118 H Troponin I High Sens < 2.7 13.3 D Total Protein 7.7 Albumin 4.1 Lipase 20 Influenza Type A (PCR) NEGATIVE Influenza Type B (PCR) NEGATIVE RSV RNA Qual (PCR) NEGATIVE SARS-CoV-2 RNA (RT-PCR) NEGATIVE Assessment and Plan (1) Chest pain: Status: Acute (2) Essential hypertension: Status: Acute Plan 59 year gentleman presenting with chest pain in the setting of elevated blood pressures. Biomarkers are negative. EKGs does not have any dynamic changes. Increase amlodipine to 10 mg. Continue eplerenone and lisinopril as before. We plan to do a stress echocardiogram on him tomorrow. If stress test is abnormal then he may need diagnostic angiography which will arrange. Thank you for allowing me to participate in the care of your patient. Please feel free to contact me if you have any questions. Procedures Date of Service Date of Service: 12/21/24
[2024-12-21] MEDS: Aspirin 325 MG TABLET PO (10:14)
--- NOTE | 2024-12-21 10:21 | PM.IMHP ---
History of Present Illness Date of Service: 12/21/24 Attending physician on admission: Ragini Ruby Chief Complaint: Chest pain Pt is a 59-year-old male with a PMH significant for?HTN and prediabetes who presents to the ED with?chest pain and pressure since early this morning. Pt reports woke from sleep to use the bathroom when he began experiencing central chest pain and pressure while lying in the bed. Pt reports he felt like there was a ?weight? on his chest. Radiated to bilateral arms that felt heavy and numb. Pt reports has been having occasional similar episodes for the past few months, though review of records indicates pt 1st presented to the ED with complaints of chest pain over 2 years ago in November of 2022. Primarily occur with exertion such as working out, though today's episode was at rest. States today's episode was the most severe episode yet. Pt reports occasional social drinking. Yesterday had 6-8 beers with friends and family. Pt did not take his home antihypertensives yesterday. Pt denies diaphoresis, increased anxiety. No SOB or difficulty breathing. No fever, chills, nausea, vomiting, abdominal pain. Currently pt reports symptoms have resolved. In the ED pt was not hypertensive up to 191/94, vitals otherwise stable and WNL. Labs were significant for initial troponin negative with repeat 13.3. No leukocytosis. Stable H&H. No significant electrolyte abnormalities. Renal and hepatic function baseline. Tested negative for flu, COVID, RSV. CXR without acute findings. EKG demonstrated normal sinus rhythm without evidence of significant ST elevations or depressions. ED contacted Cardiology who suggested admission with stress test tomorrow. Repeat EKG similar to prior. Pt was treated with ketorolac, Protonix, Maalox, amlodipine, and lisinopril. Pt will be admitted to the hospital for treatment and further evaluation of chest pain concerning for unstable angina. Review of Systems Review of Systems: Negative except for that which is stated in the HPI. [facility] Medical History HTN (hypertension) Anxiety Social History Alcohol intake: current Alcohol intake frequency: a few times a week Alcohol type: beer Patient Tobacco Use Status: Former Tobacco user Smoked in Last 30 Days: No Use of substances other than those prescribed or required for medical reasons: No Advance Directives: No Advance Directives Information Provided: Yes Nutrition Risks: No Nutritional Risk Meds Allergies Allergy/AdvReac Type Severity Reaction Status Date / Time No Known Allergies Allergy Verified 12/21/24 06:08 Active Medications: Current Medications Aspirin (Aspirin 81 Mg Tab.Chew) 81 mg PO DAILY CANDELARIO Home Medications ?Medication ?Instructions ?Recorded ?Confirmed ?Last Taken ?Type amlodipine 5 mg tablet 5 mg PO BEDTIME 08/11/23 12/21/24 12/19/24 History lisinopril 40 mg tablet 40 mg PO BEDTIME 08/11/23 12/21/24 12/19/24 History tamsulosin 0.4 mg capsule 0.4 mg PO BEDTIME 08/11/23 12/21/24 12/19/24 History sildenafil 100 mg tablet 100 mg PO DAILY PRN Erectile 12/21/24 12/21/24 Unknown History Dysfunction Physical Exam Vital Signs and Narrative: Vital Signs: Last Vital Signs Temp 97.8 F 12/21/24 06:05 Pulse 61 12/21/24 09:16 Resp 18 12/21/24 09:16 BP 151/71 H 12/21/24 09:16 Pulse Ox 97 12/21/24 09:16 O2 Del Method Room Air 12/21/24 09:16 BMI result Body Mass Index 36.0 General: AOx3, no acute distress Resp: CTA bilaterally CVS: S1, S2, RRR GI: +BS, NT, no distention Skin: Warm, dry Neuro: Cranial nerves II-XII grossly intact bilaterally. Motor grossly intact bilaterally Extremities: No edema Psych: Appropriate affect Results Labs 12/21/24 06:00 12/21/24 06:00 Labs: Laboratory Results - last 24 hr 12/21/24 12/21/24 12/21/24 06:00 06:25 08:03 MCV 83.4 MCH 29.6 MCHC 35.5 RDW 13.6 Plt Count 301 MPV 9.2 L Absolute Nucleated RBC 0.000 Nucleated RBC % (auto) 0.0 PT 12.7 H INR 1.1 Anion Gap 12 Estim Creat Clear Calc 109.0 Estimated GFR > 60 Random Glucose 134 H Calcium 9.2 Magnesium 2.0 Total Bilirubin 0.7 AST 24 ALT 30 Alkaline Phosphatase 118 H Total Protein 7.7 Albumin 4.1 Lipase 20 Influenza Type A (PCR) NEGATIVE Influenza Type B (PCR) NEGATIVE RSV RNA Qual (PCR) NEGATIVE SARS-CoV-2 RNA (RT-PCR) NEGATIVE Assessment and Plan (1) Chest pain: Qualifiers: Chest pain type: unspecified Qualified Code(s): R07.9 - Chest pain, unspecified Status: Acute Plan Pt is a 59-year-old male with a PMH significant for?HTN and prediabetes who presents to the ED with?chest pain and pressure since early this morning. Pt will be admitted to the hospital for treatment and further evaluation of chest pain concerning for unstable angina. Chest pain/pressure Reports episode of chest pain/pressure this morning radiating to bilateral shoulders and arms Initial troponin negative with repeat with delta at 13.3 EKG x2 without significant ischemic changes Reports similar intermittent episodes since 11/2022 Concerning for stable vs unstable angina Will prophylactically start on aspirin We will get echocardiogram and stress test tomorrow Cardiology consult Check lipid profile Monitor on telemetry Hypertensive urgency Patient's BP 191/94 at time of presentation Continue amlodipine, lisinopril, eplerenone Prediabtes Diabetic diet Full Code Attending:?Dr. Ruby DVT Prophylaxis: Lovenox Pt will require a hospitalization of at least two nights for treatment of?chest pain concerning for unstable angina. Given concerns for unstable angina and potential need for cardiac catheterization, pt will require hospital level care for close cardiac monitoring and additional workup with stress test and echocardiogram or in the morning. Quality Stroke Does the patient have a stroke diagnosis?: No VTE Prior VTE?: No VTE Risk Level:: Medical - moderate - high VTE Device Contraindication: Treatment Not Indicated VTE Drug Contraindication: N/A - Med Ordered
[2024-12-21] MEDS: Enoxaparin Sodium 40 MG/0.4 ML SYRINGE SUBCUT (10:31)
[2024-12-21 10:33] LABS: Cholesterol 169 mg/dL (<200); HDL Cholesterol 47 mg/dL (>40); LDL Cholesterol Calculated 82 mg/dL (<100); Triglycerides 203 mg/dL (<150)
--- NOTE | 2024-12-21 11:08 | PC.NURSE ---
Report received from ALFONSO Weathers. Taken over care at this time.
--- NOTE | 2024-12-21 11:52 | PC.NURSE ---
Pt. sitting in bed, vss. IV patent. Pt. informed on plan of care at this time. Awaiting bed assignment. Pt. denies pain or CP. All questions answered for f/u care.
--- NOTE | 2024-12-21 12:44 | PHA.MEDREC ---
Addendum entered by Heriberto Burrell 12/21/24 12:46: reviewed Original Note: Pharmacy Consult ? Medication Reconciliation Pharmacy has completed the medication reconciliation. Spoke to pt to confirm meds. Takes all meds at night.
[2024-12-21] MEDS: 0.9 % Sodium Chloride Flush 3 ML SYRINGE IVFLUSH (15:40)
--- NOTE | 2024-12-21 16:00 | PC.NURSE ---
Pt. sitting up in bed, family at bedside. Informed pt and family of plan of care. No c/o pain or distress at this time. Call danielson within reach. Pt. offered food or drink and pt. refused.
--- NOTE | 2024-12-21 20:00 | PC.NURSE ---
Pt. laying in bed, vss. Pt. watching tv, and no c/o pain or distress. Pt. offered drink and food at this time. Pt. refused what was offered. Pt. informed that he is still waiting for a room assignment.Call danielson within reach.
--- NOTE | 2024-12-21 23:17 | PC.NURSE ---
Report given to ALFONSO Barger.
[2024-12-22] VITALS (8 sets, daily range): BP systolic 124–162; BP diastolic 73–85; PULSE 57–72; RESP 16–18; TEMP 36.3–37.2; O2SAT 94–96
[2024-12-22] MEDS: Acetaminophen 325 MG TABLET 650 MG PO ×2 (02:55→15:46)
[2024-12-22] MEDS: 0.9 % Sodium Chloride Flush 3 ML SYRINGE IVFLUSH ×3 (03:00→21:26)
--- NOTE | 2024-12-22 06:19 | PC.NURSE ---
pt resting comfortably throughout the night, no apparent distress noted, pt self ambulates to bathroom as needed.
--- NOTE | 2024-12-22 07:00 | CA_ITS ---
Transthoracic Echocardiogram Patient (Last, First, Middle): Felipe Hughes, Gender: Male Date of : 1965 Age: 59 Procedure Date: 12/22/2024 Procedure Type: Transthoracic Echocardiogram Location: ER Height: 170. cm Weight: 104.33 kg BSA: 2.14 m2 Heart Rate: 60 bpm BP: 135 / 76 mmHg Wind Turbine Service Technician: BRITTNEE De Jesus MD: Randal Davis MD Test Fixture Designer: Milton Love MD Symptoms: Chest pain, elevated BP Study Quality: Adequate ECG Rhythm: Sinus Conclusions: - 1. Normal LV ejection fraction 55-60% with mild LVH with subtle basal inferior inferoseptal wall motion abnormality 2. Normal cardiac valvular Dopplers 3. No gross pericardial effusion Findings Left Ventricle Normal left ventricular size and systolic function. There is mildly increased left ventricular wall thickness. The visually estimated ejection fraction is between 55-60%. Spectral Doppler is indicative of a normal filling pattern. Wall Motion Rest Echo Findings The basal inferior and basal inferoseptal segments are hypokinetic. All other scored wall segments showed normal motion. Right Ventricle Normal right ventricular cavity size and systolic function. Atria The left atrium is likely dilated. There is lipomatous hypertrophy of the interatrial septum. There is no evidence of interatrial shunt. The right atrium is normal in size. Aortic Valve Normal aortic valve structure and function. There is no aortic valve stenosis. There is no aortic valve regurgitation. Mitral Valve Normal mitral valve structure and function. There is no mitral valve regurgitation. There is no mitral valve stenosis. Pulmonic Valve The pulmonic valve is likely normal. Tricuspid Valve Normal tricuspid valve structure. Tricuspid regurgitation envelope is inadequate for calculation of right ventricular systolic pressure. Normal right atrial pressure. There is no evidence of pulmonary hypertension. Great Vessels All visible segments of the aorta are normal in size. The pulmonary artery was not well visualized. There is no dilatation of the ascending aorta measuring 3.30 cm. Venous The inferior vena cava is normal in size and collapses greater than 50% with inspiration. Pericardium/Pleural There is no evidence of pericardial effusion. Prior Study Comparison No prior study available for comparison. Measurements 2D Linear Measurements IVSd: 1.05 0.6-0.9/0.6-1.0 cm LVIDd: 5.05 3.9-5.3/4.2-5.9 cm LVIDd Index: 2.36 2.4-3.2/2.2-3.1 cm/m2 LVIDs: 3.19 2.0-3.6 cm LVPWd: 1.20 0.7-1.1 cm LA Diam: 3.50 2.7-3.8/3.0-4.0 cm LAIDs Index: 1.64 1.5-2.3 cm/m2 LV Mass: 270.64 67-162/88-224 g LV Mass Index: 126.47 43-95/49-115 g/m2 LVOT Diam: 2.30 3.0+(-)1.3 cm 2D Systolic Function EF 4C: 56.70 >55% EF 2C: 56.90 >55% EF BiP: 55.60 >55% Mitral Valve MV Pk E: 0.89 MV PK A: 0.57 MV Decel Time: 215.00 E/A: 1.60 E'Lateral: 9.90 E'Medial: 6.09 E/E' Med: 14.60 E/E' Lat: 9.00 PHT: 63.00 MVA PHT: 3.49 Decel Barnwell: 4.15 Aortic Valve AoV Pk Connor: 1.15 AoV Mn Connor: 0.84 AoV VTI: 0.26 AoV Pk Grad: 5.00 Aov Mn Grad: 3.00 PEREZ Cont.VTI: 3.31 LVOT LVOT Pk Connor: 1.05 LVOT Mn Connor: 0.70 LVOT VTI: 0.21 LVOT Pk Grad: 4.00 LVOT Mn Grad: 2.00 LVOT Diam: 2.30 LVOT Area: 4.15 Diastolic Function MV Pk E: 0.89 MV Pk A: 0.57 E/A: 1.60 E'Medial: 6.09 E/E' Med: 14.60 E' Laterial: 9.90 E/E' Lat: 9.00 Right Ventricle TAPSE (mm): 23.80 TVS' Connor: 12.30 Tricuspid Valve RA Press: 3.00 Great Vessels Aorta Sinus of Valsalva: 3.40 2.0-3.5 cm Ao Asc: 3.30 2.1-3.4 cm Ao Arch: 2.70 Pulmonary Valve PV Pk Connor: 0.94 Peak PV Grad: 4.00 Updated in Other Vendor System with Status of Final Milton Love MD electronically signed on 12/22/2024 11:01:45 AM with status of Final
--- NOTE | 2024-12-22 07:00 | PC.NURSE ---
admission note: Pt presents to ED reporting he felt like there was a ?weight? on his chest. Radiated to bilateral arms that felt heavy and numb. ADMIT: chest pain concerning for unstable angina. cardiology consult, stress test and echo today. pt A/O x4, calm and cooperative with care, ambulates independently. NSR on tele. 20g IV R wrist.
[2024-12-22] MEDS: amLODIPine Besylate 10 MG TABLET PO (09:38)
[2024-12-22] MEDS: Aspirin 81 MG TAB.CHEW PO (09:40)
[2024-12-22] MEDS: Enoxaparin Sodium 40 MG/0.4 ML SYRINGE SUBCUT (09:41)
--- NOTE | 2024-12-22 11:11 | PM.PNCARD ---
Subjective Subjective Date of Service: 12/22/24 Principal diagnosis: Unstable angina, hypertension uncontrolled Interval history: Patient had echocardiogram which shows subtle wall motion abnormality of the basal inferior inferoseptal wall which would suggest underlying obstructive coronary artery disease. Less likely that this could be artifactual. Blood pressure still remains difficult control. Currently taking all his medications. No overnight chest pain. Troponins are negative. EKGs does not show any acute ischemic changes Review of Systems Review of Systems Yes all other systems are reviewed and are negative Physical Exam Vital Signs: Last Vital Signs Temp 98.7 F 12/22/24 09:58 Pulse 61 12/22/24 09:58 Resp 16 12/22/24 09:58 BP 162/79 H 12/22/24 09:58 Pulse Ox 96 12/22/24 09:58 O2 Del Method Room Air 12/22/24 09:58 BMI result Body Mass Index 36.0 GENERAL APPEARANCE: in no acute distress, pleasant. NECK: no carotid bruit, no jugular venous distention. SKIN: no suspicious lesions, warm and dry. HEART: no murmurs, regular rate and rhythm. LUNGS: clear to auscultation bilaterally. ABDOMEN: soft, nontender. EXTREMITIES: no edema. PERIPHERAL PULSES: equal. NEUROLOGIC: No gross deficits, AAO X 3 Objective Labs and Meds 12/21/24 06:00 12/21/24 06:00 Progress Note: A&P Assessment and plan (1) Unstable angina: Status: Acute Assessment and Plan: Unstable angina in this middle-aged man with uncontrolled hypertension other risk factors. I think patient will benefit from cardiac catheterization. This will define coronary anatomy and treat underlying significant coronary disease if present. Still requires aggressive blood pressure control. Would add nitro paste 1 in q.6 hours to his regimen in addition to other therapy. Also add atorvastatin 40 mg to his regimen in addition to low-dose aspirin therapy. Cardiac catheterization risks, benefits, alternatives were discussed. Transferred to [facility] has been initiated Will follow with him as outpatient. Time Spent With Patient Time: Total time managing care of this patient today ____ minutes. Progress Note: Quality Stroke Does the patient have a stroke diagnosis?: No Procedures Date of Service Date of Service: 12/22/24
--- NOTE | 2024-12-22 11:43 | P.DS_ITS ---
DS: Providers Provider Date of Service: 12/22/24 Date of admission: 12/21/24 10:22 Date of discharge: 12/22/24 Primary care physician: Unknown Physician Consults: 12/21/24 09:16 Consult to Cardiology Routine Consulting Provider: [facility] [place] [facility] Reason for consultation: Chest pain Has provider been notified: Yes Attending physician on discharge: Ragini Ruby Discharging clinician: Ragini Ruby DS: Diagnosis Discharge Diagnosis (1) Unstable angina: Status: Acute DS: Summary Hospital Course Hospital Course: HPI:59-year-old male with a PMH significant for?HTN and prediabetes who presents to the ED with?chest pain and pressure since early this morning. Pt reports woke from sleep to use the bathroom when he began experiencing central chest pain and pressure while lying in the bed. Pt reports he felt like there was a ?weight? on his chest. Radiated to bilateral arms that felt heavy and numb. Pt reports has been having occasional similar episodes for the past few months, though review of records indicates pt 1st presented to the ED with complaints of chest pain over 2 years ago in November of 2022. Primarily occur with exertion such as working out, though today's episode was at rest. States today's episode was the most severe episode yet. Pt reports occasional social drinking. Yesterday had 6-8 beers with friends and family. Pt did not take his home antihypertensives yesterday. Pt denies diaphoresis, increased anxiety. No SOB or difficulty breathing. No fever, chills, nausea, vomiting, abdominal pain. Currently pt reports symptoms have resolved. In the ED pt was not hypertensive up to 191/94, vitals otherwise stable and WNL. Labs were significant for initial troponin negative with repeat 13.3. No leukocytosis. Stable H&H. No significant electrolyte abnormalities. Renal and hepatic function baseline. Tested negative for flu, COVID, RSV. CXR without acute findings. EKG demonstrated normal sinus rhythm without evidence of significant ST elevations or depressions. ED contacted Cardiology who suggested admission with stress test tomorrow. Repeat EKG similar to prior. Pt was treated with ketorolac, Protonix, Maalox, amlodipine, and lisinopril. Pt will be admitted to the hospital for treatment and further evaluation of chest pain concerning for unstable angina. Hospital course: 59-year-old male with a PMH significant for?HTN and prediabetes who presents to the ED with?chest pain and pressure since early this morning. Pt will be admitted to the hospital for treatment and further evaluation of chest pain concerning for unstable angina: Patient came with the chest pain and radiation to the shoulders, troponin and EKG seems fine-symptoms are concerning of unstable angina so patient was started on aspirin, statin, blood pressure medication adjusted, also added nitro paste: Stress test done-has subtle wall motion abnormalities grossly: Discussed with the Cardiology patient need to go to [facility] for cardiac catheterization. Patient takes sildenafil p.r.n. at home which is on hold since yesterday, he was advised not to use until cardiac catheterization completed as well as further need will be decided after that. Time Attestation Total time managing care of this patient today: 40 mintues. Discharge Coordination Time (in mins): 40 min Quality: Safe Use of Opioids Does Pt have an Active Cancer Diagnosis on the Problem List?: No Quality: Stroke Does the patient have a stroke diagnosis?: No Physical Exam Vital Signs: Vital Signs: Last Vital Signs Temp 98.7 F 12/22/24 11:20 Pulse 65 12/22/24 11:20 Resp 16 12/22/24 11:20 BP 156/82 H 12/22/24 11:20 Pulse Ox 96 12/22/24 11:20 O2 Del Method Room Air 12/22/24 11:20 BMI result Body Mass Index 36.0 DS: Data Imaging Chest x-ray: My impression: cxr:: 1. No acute findings. Discharge Plan Discharge Anticipated Discharge Date/Time: 12/22/24 11:36 Patient Disposition: Xfer Acute Care Hospital Discharge Diagnosis: chest pain Referrals: Physician,Unknown J [Primary Care Provider] - 1 Week Discharge Medications: New aspirin 81 mg Tablet,Chewable 81 mg PO DAILY Qty: 1 0RF Nitro-Bid 2 % Ointment 0.5 inch transdermal RQ6H WHILE AWAKE PRN (Reason: Chest Pain) Qty: 1 0RF atorvastatin 40 mg Tablet 40 mg PO BEDTIME Qty: 1 0RF Continued lisinopril 40 mg tablet 40 mg PO BEDTIME tamsulosin 0.4 mg capsule 0.4 mg PO BEDTIME Changed amlodipine 5 mg tablet 10 mg PO BEDTIME Qty: 1 0RF Held sildenafil 100 mg tablet 100 mg PO DAILY PRN (Reason: Erectile Dysfunction) Hold Instructions: Resume on 01/13/25. Discharge Orders: Discharge Order (Routine); Ordered 12/23/24 Ordered By: Cecil Esquivel Diet: Advance to usual diet Activity on Discharge: As tolerated Stand Alone Forms: Patient Portal Discharge page Print Language: Setswana Care Plan Goals: 59-year-old male with a PMH significant for?HTN and prediabetes who presents to the ED with?chest pain and pressure since early this morning. Pt will be admitted to the hospital for treatment and further evaluation of chest pain concerning for unstable angina: Patient came with the chest pain and radiation to the shoulders, troponin and EKG seems fine-symptoms are concerning of unstable angina so patient was started on aspirin, statin, blood pressure medication adjusted, also added nitro paste: Stress test done-has subtle wall motion abnormalities grossly: Discussed with the Cardiology patient need to go to [facility] for cardiac catheterization. Patient takes sildenafil p.r.n. at home which is on hold since yesterday, he was advised not to use until cardiac catheterization completed as well as further need will be decided after that. Health Concerns: As above. Plan of Treatment: As above. Assessment: As above. Discharge Date/Time: 12/23/24 04:10
--- NOTE | 2024-12-22 11:46 | MHC.CM.PN ---
Addendum entered by Angelita Cristina 12/22/24 16:05: CORRECTION! Plan is for transfer to [facility], pending bed availability. CM met with Patient at bedside; his PCP, Juan Pablo Rocha, has retired and he is not certain of the name of the Doctor in the same practice, who has taken over. Original Note: Patient has been medically cleared for dc to home today, self care.
[2024-12-22] MEDS: Nitroglycerin 2 % Oint 1 GM Packet 0.5 INCH TRANSDERMA (12:13)
--- NOTE | 2024-12-22 14:29 | P.PNIM_ITS ---
Subjective Subjective Date of Service: 12/22/24 Interval History: Chest pain/pressure Review of Systems no chest pain Physical Exam 2 Vital Signs: Vital Signs: Last Vital Signs Temp 98.7 F 12/22/24 11:20 Pulse 65 12/22/24 11:20 Resp 16 12/22/24 11:20 BP 156/82 H 12/22/24 11:20 Pulse Ox 96 12/22/24 11:20 O2 Del Method Room Air 12/22/24 11:20 BMI result Body Mass Index 36.0 Appearance: Alert.? Oriented X3.? not in distress.? Eyes: Pupils equal, round and reactive to light.? Sclera nonicteric.? ENT: Pharynx normal.? Moist mucous membranes. cvs: rrr, [id number] , no murmur res: clear to auscultation ,no rhonchii or wheezing abd: no rebound or guarding ,nt, bs present. ext pulses present , no cyanosis ,Gait well balanced well coordinated. neuro: axo3 , nonfocal. Objective Data Active Medications Acetaminophen (Acetaminophen 325 Mg Tablet) 650 mg PO Q6H PRN PRN Reason: Pain, Mild 1-3,fever,headache Last Admin: 12/22/24 02:55 Dose: 650 mg Documented By: ALISE Amlodipine Besylate (Amlodipine Besylate 10 Mg Tablet) 10 mg PO DAILY [facility]; Protocol Last Admin: 12/22/24 09:38 Dose: 10 mg Documented By: CHIN Aspirin (Aspirin 81 Mg Tab.Chew) 81 mg PO DAILY [facility] Last Admin: 12/22/24 09:40 Dose: 81 mg Documented By: CHIN Calcium Carbonate (Calcium Carbonate 750 Mg Tab.Chew) 750 mg PO Q4H PRN PRN Reason: Heartburn Enoxaparin Sodium (Enoxaparin Sodium 40 Mg/0.4 Ml Syringe) 40 mg SUBCUT Q24H [facility] Last Admin: 12/22/24 09:41 Dose: 40 mg Documented By: CHIN Magnesium Hydroxide (Milk Of Magnesia 30 Ml Oral.Susp) 30 ml PO DAILY PRN PRN Reason: Constipation Melatonin (Melatonin 3 Mg Tablet) 6 mg PO BEDTIME PRN PRN Reason: Insomnia Nitroglycerin (Nitroglycerin 2 % Oint 1 Gm Packet) 0.5 inch TRANSDERMA RQ6H WHILE AWAKE PRN PRN Reason: Chest Pain Last Admin: 12/22/24 12:13 Dose: 0.5 inch Documented By: PEYTON Ondansetron HCl (Ondansetron Hcl 4 Mg/2 Ml Vial) 4 mg IVPUSH Q8H PRN PRN Reason: Nausea and Vomiting Sodium Chloride (0.9 % Sodium Chloride Flush 3 Ml Syringe) 3 ml IVFLUSH QSHIFT CANDELARIO Last Admin: 12/22/24 07:37 Dose: Not Given Documented By: CHIN Non-Admin Reason: Previously Administered Labs 12/21/24 06:00 12/21/24 06:00 Assessment and Plan (1) Unstable angina: Status: Acute Assessment and Plan: 59-year-old male with a PMH significant for?HTN and prediabetes who presents to the ED with?chest pain and pressure since early this morning. Pt will be admitted to the hospital for treatment and further evaluation of chest pain concerning for unstable angina: Patient came with the chest pain and radiation to the shoulders, troponin and EKG seems fine-symptoms are concerning of unstable angina so patient was started on aspirin, statin, blood pressure medication adjusted, also added nitro paste: Stress test done-has subtle wall motion abnormalities grossly: Discussed with the Cardiology patient need to go to tertiary care hospital for cardiac catheterization. htn: improivng, continue amlodipine,lisinopril. Patient takes sildenafil p.r.n. at home which is on hold since yesterday, he was advised not to use until cardiac catheterization completed as well as further need will be decided after that. awaiting [facility] placement Quality Stroke Does the patient have a stroke diagnosis?: No VTE Prior VTE?: No VTE Risk Level:: Medical - moderate - high VTE Device Contraindication: Treatment Not Indicated VTE Drug Contraindication: N/A - Med Ordered
[2024-12-22] MEDS: Atorvastatin Calcium 40 MG TABLET PO (21:25)
[2024-12-23 03:24] VITALS: BP 148/83; PULSE 57; RESP 18; TEMP 36.6; O2SAT 95
== END 2024-12-23 04:10 | disposition short-term general hospital (02) | DRG 198 ==
LOC: HO.ED 09:37 → HO.EDOVER 10:23 → HO.IMC 12-22 07:39
PROVIDERS: Physician Assistant Medical; Admitting Provider Student in an Organized Health Care Education/Training Program; Emergency Provider Emergency Medicine; Visit Provider Internal Medicine
DX: I20.0 Unstable angina (principal); I10 Essential (primary) hypertension; I16.0 Hypertensive urgency; R73.03 Prediabetes; Z20.822 Contact with and (suspected) exposure to COVID-19; Z87.891 Personal history of nicotine dependence; Z79.899 Other long term (current) drug therapy
CPT/HCPCS: 0241U; 36415; 71046; 80053; 80061; 83690; 83735; 84484; 85027; 85610; 93005; 93306; 99285; J1650; J1885; J2470; Q9957

== ENCOUNTER → 2024-12-21 06:46 | Outpatient (BNV) | payer BC, SELFPAY | PROVIDERS: Visit Provider Radiology Diagnostic Radiology | DX: R07.9 Chest pain, unspecified (principal) | CPT/HCPCS: 71046 ==

== ENCOUNTER 2024-12-21 10:22 | Outpatient (BNV) | payer BC, SELFPAY | END 2024-12-22 07:00 | PROVIDERS: Admitting Provider Student in an Organized Health Care Education/Training Program; Emergency Provider Emergency Medicine; Visit Provider Internal Medicine Cardiovascular Disease | DX: I42.8 Other cardiomyopathies (principal) | CPT/HCPCS: 93306 ==

== ENCOUNTER → 2024-12-21 10:22 | Outpatient (BNV) | payer BC, SELFPAY | PROVIDERS: Admitting Provider Student in an Organized Health Care Education/Training Program; Emergency Provider Emergency Medicine; Visit Provider Internal Medicine Cardiovascular Disease | DX: R07.9 Chest pain, unspecified (principal); I10 Essential (primary) hypertension | CPT/HCPCS: 99223 ==

== ENCOUNTER → 2024-12-21 10:22 | Outpatient (BNV) | payer BC, SELFPAY | PROVIDERS: Admitting Provider Student in an Organized Health Care Education/Training Program; Emergency Provider Emergency Medicine; Visit Provider Student in an Organized Health Care Education/Training Program | DX: R07.9 Chest pain, unspecified (principal); I16.0 Hypertensive urgency; R73.03 Prediabetes | CPT/HCPCS: 99222 ==

== ENCOUNTER → 2024-12-23 23:59 | Outpatient (BNV) | payer BC, SELFPAY | PROVIDERS: Visit Provider Internal Medicine Cardiovascular Disease | DX: I21.4 Non-ST elevation (NSTEMI) myocardial infarction (principal) | CPT/HCPCS: 93458; 99152 ==